=== PATIENT | male | born 1965 | race Hispanic/Latino ===

== ENCOUNTER 2019-04-01 17:52 | Emergency (ER) | payer SELFPAY ==
--- NOTE | 2019-04-01 18:31 | RAD ---
LEFT KNEE FOUR VIEWS: 04/01/19 HISTORY: Knee pain, status post fall. There is severe arthritic changes of the knee with marked medial compartment narrowing. Also patellof emoral degenerative spurring. A small joint effusion. There is what appears to be a fragmented bipart ite patella. I do not believe that this is related to acute trauma. IMPRESSION: Marked arthritic changes in the knee. POS: OFF
== END 2019-04-01 19:36 | disposition short-term general hospital (02) ==
LOC: ERS 17:52
DX: M25.462 Effusion, left knee (principal); F17.210 Nicotine dependence, cigarettes, uncomplicated

== ENCOUNTER 2019-08-05 08:30 | Inpatient (IN) | payer OTHER ==
--- NOTE | 2019-08-19 13:29 | HP ---
HISTORY OF PRESENT ILLNESS: The patient is a 53-year-old male with a long history of progressive problems with both knees, left greater than right without injury. He has had progressive degenerative arthritis, which has persisted despite rest, restriction of activities, anti-inflammatory medications including diclofenac and previous cortisone injection. The pain in his left knee is interfering with day-to-day activities including walking, getting dressed, and sleeping. PAST MEDICAL HISTORY: The patient is otherwise in good health and has no major medical problems. ALLERGIES: HE HAS NO KNOWN ALLERGIES. MEDICATIONS: His routine mediation is diclofenac. FAMILY HISTORY: Otherwise unremarkable. SOCIAL HISTORY: Otherwise unremarkable. REVIEW OF SYSTEMS: Otherwise unremarkable. PHYSICAL EXAMINATION: GENERAL: Reveals a healthy male. HEENT: Unremarkable. NECK: Supple. CHEST: Clear. HEART: Regular rate and rhythm. ABDOMEN: Soft, nontender. RECTAL: Deferred. GENITAL: Deferred. EXTREMITIES: Pertinent findings with the left knee. There is trace effusion. There is mild varus deformity. There is tenderness and crepitus over the medial joint line. Range of motion is 3 to 120 degrees. There is no instability. Neurovascular exam is intact. Distal pulses 1+. There is a left antalgic gait. There is no pain with range of motion of the left hip. DIAGNOSTIC STUDIES: X-rays of the left knee reveal [id number] collapse medially and moderate to severe changes in the right knee. IMPRESSION: Degenerative arthritis of both knees, left greater than right. PLAN: Left total knee replacement. He eventually require right total knee replacement. The nature of the surgery, length of recovery, and potential complications such as infection, loss of motion, incomplete relief, delayed wound healing, neurovascular injury, thromboembolic phenomena, possible transfusion, need for revision have been discussed in detail. Job ID: [id number]
[2019-08-23] MEDS ORDERED: Fentanyl 100 MCG/2 ML VIAL ONE ×5 (05:55→09:39)
[2019-08-23] MEDS ORDERED: Sodium Chloride 0.9% 100 ML ONE (06:13)
[2019-08-23] MEDS ORDERED: Tranexamic Acid 1,000 MG/10 ML VIAL ONE ×2 (06:13→09:48)
[2019-08-23] MEDS ORDERED: Vancomycin HCl 1.5 GM in Sodium Chloride 0.9% 250 ML 300 ML IVPB SCH (06:15)
[2019-08-23] MEDS ORDERED: Midazolam HCl 2 mg/2 ml Vial ONE (06:37)
[2019-08-23] MEDS ORDERED: Bupivacaine HCl 0.5%/Epinephrine 1:200,000/PF 30 ml Vial ONE ×2 (06:48→13:20)
[2019-08-23] MEDS ORDERED: Zolpidem Tartrate 5 MG TAB PO PRN ×2 (07:17→11:05)
[2019-08-23] MEDS ORDERED: Promethazine HCl 25 MG/ML VIAL IM PRN (07:17)
[2019-08-23] MEDS ORDERED: Ondansetron PF 4 MG/2 ML Vial IVP PRN ×2 (07:17→11:05)
[2019-08-23] MEDS ORDERED: HYDROcodone/Acetaminophen 10/325 mg Tablet PO PRN ×3 (07:17→11:05)
[2019-08-23] MEDS ORDERED: traMADol HCl 50 MG TAB PO PRN ×3 (07:17→11:05)
[2019-08-23] MEDS ORDERED: Ropivacaine HCl/PF 250 ML in Premix Bag 1 BAG NERVE BLCK SCH (07:17)
[2019-08-23] MEDS ORDERED: Fentanyl 100 MCG/2 ML VIAL IV PRN (07:19)
[2019-08-23] MEDS ORDERED: Sodium Chloride 0.9% 20 ML ONE (08:15)
[2019-08-23] MEDS ORDERED: Tranexamic Acid 1,000 MG in Sodium Chloride 0.9% 100 ML IVPB SCH ×2 (09:15→11:05)
--- NOTE | 2019-08-23 09:38 | RAD ---
Exam:2 views left HISTORY: Status post arthroplasty COMPARISON: None FINDINGS: Findings compatible with left knee arthroplasty. Expected postoperative changes. IMPRESSION: Findings compatible left knee arthroplasty.
[2019-08-23] MEDS ORDERED: hydrALAZINE 20 MG/ML VIAL ONE (10:02)
[2019-08-23] MEDS ORDERED: Lidocaine 1% PF 5 ML VIAL ONE (10:05)
[2019-08-23] MEDS ORDERED: Ondansetron PF 4 MG/2 ML Vial ONE (10:05)
[2019-08-23] MEDS ORDERED: PROPOFOL 200 MG/20 ML VIAL ONE (10:05)
[2019-08-23] MEDS ORDERED: Promethazine HCl 25 MG/ML VIAL SLOW IVP PRN (11:05)
[2019-08-23] MEDS ORDERED: diphenhydrAMINE 25 MG CAP PO PRN (11:05)
[2019-08-23] MEDS ORDERED: Fentanyl 100 MCG/2 ML VIAL SLOW IVP PRN ×2 (11:05)
[2019-08-23] MEDS ORDERED: Acetaminophen 325 MG TAB PO PRN (11:05)
[2019-08-23] MEDS: Ketorolac Tromethamine 30 MG/ML VIAL IVP SCH ×2 (11:34→18:23)
[2019-08-23] MEDS ORDERED: Ketorolac Tromethamine 30 MG/ML VIAL IVP SCH (12:00)
[2019-08-23] MEDS: Sodium Chloride 0.9% 1,000 ML IV SCH ×2 (12:12→20:43)
[2019-08-23] MEDS ORDERED: Ropivacaine 0.2% HCl/PF (40 MG/20 ML VIAL) ONE (13:20)
[2019-08-23] MEDS ORDERED: Ropivacaine 0.5% HCl/PF (150 MG/30 ML VIAL) ONE (13:20)
--- NOTE | 2019-08-23 14:10 | OP ---
DATE OF PROCEDURE: 08/23/2019 VIBRATOR EQUIPMENT TESTER: Guerda Brandon PA-C ANESTHESIA: General plus adductor canal and sciatic nerve blocks. PREOPERATIVE DIAGNOSIS: Degenerative arthritis, left knee. POSTOPERATIVE DIAGNOSIS: Degenerative arthritis, left knee. PROCEDURE PERFORMED: Left total knee replacement with computer-assisted navigation with cemented Martin Triathlon components (#4 femoral component, #5 primary tibial base plate with 11-mm CS plastic insert, and all-plastic A32 patellar component). DESCRIPTION OF PROCEDURE: After satisfactory anesthesia was induced in a supine position, sequential compression device was placed on the nonoperative leg throughout the procedure. The left leg was then prepped and draped in routine sterile fashion, elevated, exsanguinated with an Esmarch bandage and the tourniquet inflated to 300 mmHg. A gently curved medial parapatellar incision was made. The subcutaneous tissues and bleeding points controlled with cautery. Medial parapatellar arthrotomy was performed. Patella was carried laterally and portion of the fat pad was excised for exposure. There was marked tricompartmental degenerative arthritis of the knee with large areas of exposed bone especially medially. Meniscal remnants and osteophytes were removed. Using the [employer]pi[employer] pinless navigation system and the appropriate guides, the distal femoral and proximal tibial articular surfaces were excised with oscillating saw except the trial components. It was felt that #4 femoral component, #5 tibial base plate with 11 mm CS plastic insert gave appropriate size, fit, stability, and correction of the preoperative deformity. The patellar articular surface was excised to accept an all-plastic A32 patellar component. There was good range of motion and good patellar tracking. The trial components were removed. The knee was copiously irrigated with pulsatile lavage. The bony surfaces thoroughly cleaned and dried. The permanent components were then cemented in a single stage using 1 package of cement premixed with 1 g of tobramycin powder. Excess cement was removed. There was again good fit stability of the components. The wound was again copiously irrigated. The medial retinaculum and quadriceps mechanism were closed with interrupted #2 Vicryl and a running #2 Quill. Subcutaneous tissues were closed with running 0 Quill suture and the skin closed with running subcuticular 3-0 Monoderm and SurgiSeal skin adhesive. A sterile bulky compressive dressing was applied. The tourniquet deflated after 78 minutes. The foot promptly pinked up. Sequential compression device was applied to the operated leg. He was awakened, taken to recovery room in stable condition. There were no apparent intraoperative complications. ESTIMATED BLOOD LOSS: Less than 100 mL. Job ID: [id number]
[2019-08-23] MEDS: CEFAZOLIN 2 GM in Premix Bag 1 BAG IVPB SCH ×2 (15:48→23:58)
[2019-08-23] MEDS: HYDROcodone/Acetaminophen 10/325 mg Tablet PO PRN (15:55)
[2019-08-23] MEDS: Vancomycin 1.5 GRAM/300 ML BAG 1.5 GM in Premix Bag 1 BAG IVPB SCH (18:15)
[2019-08-23] MEDS: Aspirin 81 mg Enteric Coated Tablet PO SCH (20:44)
[2019-08-24] MEDS: Ketorolac Tromethamine 30 MG/ML VIAL IVP SCH ×4 (00:01→18:36)
[2019-08-24 05:16] LABS: Hemoglobin 13.1 g/dL (14.0-18.0); Mean Corpuscular HGB CONC 34.3 g/dL (32.0-36.0); Mean Corpuscular Hemoglobin 32.3 pg (27.0-31.0); Mean Corpuscular Volume 94.1 fL (78.0-98.0); Mean Platelet Volume 8.3 fL (7.4-10.4); Platelet Count 196 thou/uL (130-400); RBC Distribution Width 12.3 % (11.5-14.5); Red Blood Cell (RBC) Count 4.07 mill/uL (4.70-6.10); White Blood Cell (WBC) Count 10.5 thou/uL (4.8-10.8)
[2019-08-24] MEDS: HYDROcodone/Acetaminophen 10/325 mg Tablet PO PRN ×3 (06:09→15:11)
[2019-08-24] MEDS: Sodium Chloride 0.9% 1,000 ML IV SCH ×2 (07:29→18:26)
[2019-08-24] MEDS: Senokot S 8.6-50 MG TAB PO SCH ×2 (09:10→20:25)
[2019-08-24] MEDS: Multivitamin W/ Minerals 1 TAB PO SCH (09:11)
[2019-08-24] MEDS: Aspirin 81 mg Enteric Coated Tablet PO SCH ×2 (09:11→20:25)
[2019-08-24 10:54] VITALS: BMI 32.1
[2019-08-24] MEDS: Vancomycin 1.5 GRAM/300 ML BAG 1.5 GM in Premix Bag 1 BAG IVPB SCH (18:47)
[2019-08-25] MEDS: Ketorolac Tromethamine 30 MG/ML VIAL IVP SCH ×2 (00:01→05:16)
[2019-08-25] MEDS: Sodium Chloride 0.9% 1,000 ML IV SCH ×2 (03:41→09:34)
--- NOTE | 2019-08-25 08:52 | DIS ---
DATE OF ADMISSION: 08/23/2019 DATE OF DISCHARGE: 08/25/2019 This is Guerda Brandon PA-C dictating a report for Rolando Wang MD. PREOPERATIVE DIAGNOSIS: Degenerative arthritis, left knee. POSTOPERATIVE DIAGNOSIS: Degenerative arthritis, left knee. PROCEDURE PERFORMED: Left total knee replacement with computer assisted navigation with cemented Martin triathlon components. CONSULTANTS: On the case include [facility] and [facility]. BRIEF HOSPITAL COURSE: This is a 53-year-old male, who was indicated for the above-mentioned procedure after failing outpatient conservative management. He did well in the operative suite and postoperatively was admitted to [address], where he worked with Occupational and Physical Therapy. He did well with this. He also received postoperative antibiotics as well as postoperative analgesics, which were managed by [facility]. He continued to advance with physical therapy and on postoperative day #2, he was discharged. No complications were incurred during his hospital stay. DISCHARGE DISPOSITION: Home with home health. DISCHARGE CONDITION: Stable. DISCHARGE INSTRUCTIONS: The patient will follow up with Dr. Wang as scheduled. He will keep his surgical site clean, dry, and covered until his followup appointment. He will work with physical therapy through home health. DISCHARGE MEDICATIONS: See MAR. Job ID: [id number]
[2019-08-25] MEDS: Multivitamin W/ Minerals 1 TAB PO SCH (09:30)
[2019-08-25] MEDS: Senokot S 8.6-50 MG TAB PO SCH (09:30)
[2019-08-25] MEDS: Aspirin 81 mg Enteric Coated Tablet PO SCH (09:30)
[2019-08-25] MEDS: HYDROcodone/Acetaminophen 10/325 mg Tablet PO PRN (09:32)
[2019-08-25 13:43] VITALS: BP 165/81; TEMP 98.3
== END 2019-08-25 14:42 | disposition home health service (06) | DRG 470 ==
LOC: SJJU 08-23 05:23
PROVIDERS: ADMIT Orthopaedic Surgery; ATTEND Orthopaedic Surgery
PROC: 0SRD0J9 Replacement of Left Knee Joint with Synthetic Substitute, Cemented, Open Approach (ICD-10-PCS; principal; 2019-08-23)
PROC: 8E0YXBZ Computer Assisted Procedure of Lower Extremity (ICD-10-PCS; 2019-08-23)
DX: M17.0 Bilateral primary osteoarthritis of knee (principal); Z79.1 Long term (current) use of non-steroidal anti-inflammatories (NSAID)
CPT/HCPCS: 36415; 85027; C1713; C1776; J0360; J0670; J0690; J1885; J2001; J2250; J2405; J2704; J2795; J3010; J3490

== ENCOUNTER 2019-08-20 15:58 | Outpatient (CLI) | payer SELFPAY ==
[2019-08-20 16:37] LABS: Bacteria/HPF None Seen HPF (None Seen); Bilirubin Negative (Negative); Blood, Urine Negative (Negative); Clarity Clear (Clear); Glucose, Urine (Dipstick) Normal (Negative); Leukocyte Negative Leu/uL (Negative); Nitrite Negative (Negative); Protein, Urine (Dipstick) Negative (Neg-Trace); RBC/HPF 0-3 HPF (0-3); Squamous Epithelial None Seen HPF (0-3); Urobilinogen 3 mg/dL (Less than 2); WBC/HPF 0-3 HPF (0-3)
[2019-08-20 16:40] LABS: #Eosinphils 0.3 thou/uL (0.0-0.7); #Lymphocytes 5.4 thou/uL (1.20-3.40); #Monocytes 1.2 thou/uL (0.11-0.59); #Neutrophils 8.3 thou/uL (1.40-6.50); %Basophils 0.3 % (0.0-1.0); %Eosinophils 1.8 % (0.0-10.0); %Lymphocytes 35.4 % (21.0-51.0); %Monocytes 7.9 % (0.0-10.0); %Neutrophils 54.6 % (42.0-75.0); Hemoglobin 15.7 g/dL (14.0-18.0); Mean Corpuscular HGB CONC 32.8 g/dL (32.0-36.0); Mean Corpuscular Hemoglobin 30.5 pg (27.0-31.0); Mean Corpuscular Volume 93.2 fL (78.0-98.0); Mean Platelet Volume 8.2 fL (7.4-10.4); Platelet Count 302 thou/uL (130-400); RBC Distribution Width 12.4 % (11.5-14.5); Red Blood Cell (RBC) Count 5.15 mill/uL (4.70-6.10); White Blood Cell (WBC) Count 15.2 thou/uL (4.8-10.8)
[2019-08-20 16:54] LABS: INR-International Normal Ratio 1.1
[2019-08-20 16:58] LABS: Anion Gap 14 mmol/L (10-20); BUN (Urea Nitrogen) 12 mg/dL (8.4-25.7); Calc. Creatinine Clearance 0 mL/min (70-130); Calcium 9.4 mg/dL (7.8-10.44); Carbon Dioxide 24 mmol/L (22-29); Chloride 109 mmol/L (98-107); Estimated GFR-MDRD 87; Glucose 90 mg/dL (70-105); Sodium 143 mmol/L (136-145)
--- NOTE | 2019-08-23 16:46 | EKG ---
Test Reason : Blood Pressure : / mmHG Vent. Rate : 067 BPM Atrial Rate : 067 BPM P-R Int : 124 ms QRS Dur : 092 ms QT Int : 412 ms P-R-T Axes : 059 -27 046 degrees QTc Int : 435 ms Normal sinus rhythm Moderate voltage criteria for LVH, may be normal variant Borderline ECG Confirmed by DR. Beltran CLINE ([id number]) on 08/23/2019 4:45:24 PM Referred By: ABBY Confirmed By:DR. Beltran CLINE
== END 2019-08-20 15:59 | disposition home or self-care (01) ==
LOC: LABBT 15:58
PROVIDERS: ATTEND Orthopaedic Surgery
DX: Z01.818 Encounter for other preprocedural examination (principal); M17.12 Unilateral primary osteoarthritis, left knee
CPT/HCPCS: 80048; 81001; 85025; 85610; 87081; 93005; 93010